=== PATIENT | male | born 1965 | race Two or more races ===

== ENCOUNTER 2017-12-24 10:42 | Outpatient (CLI) | payer OTHER ==
[~2017-12-24 10:42] MED LIST: ACIDOPHILUS1 EAC2; AVELOX ABC PAC400 MG PO; CATAFLAN PO; DEXAMETHASONE4 MG PO; FAMOTIDINE20 MG PO; FLUCONAZOLE100 MG PO; GABAPENTIN400 MG PO; KEPPRA500 MG PO; OXYC1TAB9 PO; PROBIOTIC & AC1 EACH PO; TUSSI PRES-B L120 M1 PO; ULTRAM50 MG PO; VITAMIN B-121000 MC2 SL
== END 2017-12-24 10:57 | disposition home or self-care (01) ==
LOC: LAB 10:42
DX: C78.01 Secondary malignant neoplasm of right lung (principal); I27.20 Pulmonary hypertension, unspecified

== ENCOUNTER 2017-12-24 11:44 | Outpatient (CLI) | payer OTHER | END 2017-12-24 12:02 | disposition home or self-care (01) | LOC: RAD 11:44 | DX: J44.9 Chronic obstructive pulmonary disease, unspecified (principal) ==

== ENCOUNTER → 2018-05-21 15:53 | Outpatient (CLI) | payer OTHER | END | disposition home or self-care (01) | LOC: RAD 15:53 | DX: K57.30 Diverticulosis of large intestine without perforation or abscess without bleeding (principal); Z93.3 Colostomy status ==

== ENCOUNTER 2018-05-29 14:30 | Inpatient (IN) | payer OTHER ==
[~2018-05-29] VITALS: Ht 162.6 cm; Wt 80.7 kg
[2018-05-29] MEDS ORDERED: KEPPRA500 MG PO ×2 (15:32)
[2018-05-29] MEDS ORDERED: MAXIMUM DAILY1 EACH PO (15:33)
[2018-05-29] MEDS ORDERED: PEPCID20 MG PO (15:33)
[2018-05-29] MEDS ORDERED: TRICOR145 MG PO (15:34)
[2018-05-29] MEDS ORDERED: INTESTINEX680 M1 PO (15:34)
[2018-05-29] MEDS ORDERED: OMEGA-31000 MG PO (15:34)
[2018-05-29] MEDS ORDERED: OSTERA TABLET1 EACH (15:35)
[2018-06-12] MEDS ORDERED: POLY119PG PO (11:10)
[2018-06-12] MEDS ORDERED: OXYC1TAB9 PO (11:10)
[2018-06-12] MEDS ORDERED: INTESTINEX680 M1 PO (11:10)
== END 2018-06-12 14:29 | disposition home or self-care (01) | DRG 940 ==
LOC: SURH 06-05 05:59 → O/R 06-05 05:59 → SURG 06-05 07:00 → SURH 06-05 11:58 → SURG 06-05 14:30 → SURH 06-05 21:02
PROVIDERS: Surgery
PROC: 0DJD8ZZ Inspection of Lower Intestinal Tract, Via Natural or Artificial Opening Endoscopic (ICD-10-PCS; 2018-06-05)
PROC: 4A033R1 Measurement of Arterial Saturation, Peripheral, Percutaneous Approach (ICD-10-PCS; 2018-06-05)
PROC: 0DQE4ZZ Repair Large Intestine, Percutaneous Endoscopic Approach (ICD-10-PCS; principal; 2018-06-05 07:00)
DX: Z93.3 Colostomy status (principal); K63.2 Fistula of intestine; K91.72 Accidental puncture and laceration of a digestive system organ or structure during other procedure; K57.20 Diverticulitis of large intestine with perforation and abscess without bleeding; G40.89 Other seizures; C34.92 Malignant neoplasm of unspecified part of left bronchus or lung; C34.91 Malignant neoplasm of unspecified part of right bronchus or lung; C79.31 Secondary malignant neoplasm of brain; L03.311 Cellulitis of abdominal wall; D12.6 Benign neoplasm of colon, unspecified

== ENCOUNTER → 2019-01-02 | Day surgery (SDC) | payer OTHER ==
[~2019-01-02] MED LIST changes: +INTESTINEX680 M1 PO; +MAXIMUM DAILY1 EACH PO; +OMEGA-31000 MG PO; +OSTERA TABLET1 EACH; +PEPCID20 MG PO; +POLY119PG PO; +PROCTOZONE-HC30 GM RECTAL; +TRICOR145 MG PO
== END | disposition home or self-care (01) ==
LOC: ADM 12-31 15:00 → AMB-ENDOS 06:52
DX: K52.89 Other specified noninfective gastroenteritis and colitis (principal)

== ENCOUNTER 2019-10-02 10:05 | Emergency (ER) | payer OTHER ==
[~2019-10-02] VITALS: Ht 162.6 cm; Wt 73.5 kg
[2019-10-02] MEDS ORDERED: ASACOL HD800 MG PO ×2 (10:26)
[2019-10-02] MEDS ORDERED: ABATINEX680 MG PO (10:27)
[2019-10-02] MEDS ORDERED: CRESTOR5 MG PO (10:29)
[2019-10-02] MEDS ORDERED: NORVASC5 MG PO (10:29)
== END 2019-10-02 19:39 | disposition home or self-care (01) ==
LOC: ER 10:05
DX: N41.8 Other inflammatory diseases of prostate (principal); K63.89 Other specified diseases of intestine; I88.0 Nonspecific mesenteric lymphadenitis; N28.1 Cyst of kidney, acquired; K62.5 Hemorrhage of anus and rectum; R19.7 Diarrhea, unspecified

== ENCOUNTER 2020-09-06 18:32 | Emergency (ER) | payer OTHER ==
[~2020-09-06] VITALS: Ht 162.6 cm; Wt 78.5 kg
[~2020-09-06 18:32] MED LIST changes: +ABATINEX680 MG PO; +ASACOL HD800 MG PO; +CRESTOR5 MG PO; +NORVASC5 MG PO
== END 2020-09-07 17:32 | disposition designated cancer center or children's hospital (05) ==
LOC: ER 18:32
DX: G93.6 Cerebral edema (principal); G40.802 Other epilepsy, not intractable, without status epilepticus; C78.00 Secondary malignant neoplasm of unspecified lung; C79.31 Secondary malignant neoplasm of brain; Z03.818 Encounter for observation for suspected exposure to other biological agents ruled out; R51.9 Headache, unspecified; R20.2 Paresthesia of skin